=== PATIENT | female | born 1980 | race Caucasian/White ===

== ENCOUNTER 2023-05-05 21:39 | Emergency (ER) | payer BC ==
[2023-05-05] MEDS ORDERED: Aspirin 81 MG Tab.Chew PO ONE (21:55)
[2023-05-05 22:06] LABS: BASOPHILS ABSOLUTE AUTO 0.03 K/mm3 (0.01-0.08); BASOPHILS PERCENT AUTO 0.3 % (0.1-1.2); HEMATOCRIT 41.9 % (34.1-44.9); HEMOGLOBIN 14.3 gm/dl (11.2-15.7); IMMATURE GRAN ABSOLUTE AUTO 0.04 K/mm3 (0.00-0.10); IMMATURE GRAN PERCENT AUTO 0.4 % (<=1.0); LYMPHOCYTES ABSOLUTE AUTO 2.73 K/mm3 (1.18-3.74); LYMPHOCYTES PERCENT AUTO 27.7 % (19.3-51.7); MEAN CORPUSCULAR HEMOGLOBIN 30.2 pg (25.6-32.2); MEAN CORPUSCULAR HGB CONC 34.1 g/dl (32.2-35.5); MEAN CORPUSCULAR VOLUME 88.4 fl (79.4-94.8); MEAN PLATELET VOLUME 8.7 fl (9.4-12.3); MONOCYTES ABSOLUTE AUTO 0.91 K/mm3 (0.24-0.36); MONOCYTES PERCENT AUTO 9.2 % (4.7-12.5); NEUTROPHILS ABSOLUTE AUTO 5.94 K/mm3 (1.56-6.13); NEUTROPHILS PERCENT AUTO 60.4 % (34.0-71.1); PLATELET COUNT,PLT 316 K/mm3 (182-369); RED BLOOD CELL COUNT 4.74 M/mm3 (3.98-5.22); WHITE BLOOD CELL COUNT,WBC 9.85 K/mm3 (3.98-10.04)
[2023-05-05 22:16] LABS: PROTHROMBIN TIME 9.8 SECONDS (9.7-12.0)
[2023-05-05 22:17] LABS: D-DIMER QUANTITATIVE 0.26 mg/L (0.19-0.50)
[2023-05-05 22:18] LABS: INR < 0.93
[2023-05-05 22:20] LABS: A/G RATIO 1.1 (1-2); ALANINE AMINOTRANSFERASE,ALT 33 U/L (14-59); ALBUMIN 3.7 g/dl (3.4-5.0); ALKALINE PHOSPHATASE 111 U/L (46-116); ANION GAP 11.7 (5-15); ASPARTATE AMNIOTRANSFERASE,AST 14 U/L (15-37); BILIRUBIN TOTAL 0.2 mg/dL (0.2-1.0); BLOOD UREA NITROGEN,BUN 20 mg/dL (7-18); BUN/CREATININE RATIO 22.2 (14-18); CALCIUM 8.8 mg/dL (8.5-10.1); CARBON DIOXIDE,CO2 29 mEq/L (21-32); CHLORIDE,CL 102 mEq/L (98-107); CREATININE 0.9 mg/dL (0.55-1.02); EST CRCL DRUG DOSING (CG) 62.43 mL/min; ESTIMATED GFR 80 mL/min (>60); GLUCOSE RANDOM 90 mg/dL (70-99); POTASSIUM,K 3.7 mEq/L (3.5-5.1); PROTEIN TOTAL,TP 7.2 g/dl (6.4-8.2); SODIUM,NA 139 mEq/L (136-145)
[2023-05-05 22:28] LABS: TROPONIN I HIGH SENSITIVITY < 4 pg/mL (<=51)
[2023-05-05] MEDS ORDERED: Morphine 4 MG/ML Syringe IVPUSH ONE (22:35)
[2023-05-05] MEDS ORDERED: Ondansetron 4 MG/2 ML SDV IVPUSH ONE (22:35)
[2023-05-05] MEDS ORDERED: methylPREDNISolone Sodium Succinate 125 MG/2 ML SDV IVPUSH ONE (23:14)
== END 2023-05-05 23:50 | disposition home or self-care (01) ==
LOC: JD.ED 21:39
DX: R07.89 Other chest pain (principal); Z88.0 Allergy status to penicillin
CPT/HCPCS: 36415; 71045; 80053; 84484; 85025; 85379; 85610; 93005; 96374; 96375; 99285; J2270; J2405; J2930; 93010; 99284